=== PATIENT | male | born 1930 | race Caucasian/White ===

== ENCOUNTER → 2017-11-23 | Outpatient (CLI) | payer MEDICARE, OTHER ==
[~2017-11-23] MED LIST: AMOXICILLIN 50500 M1 PO; ANTIVERT25 MG PO; ASPIR 8181 MG PO; ASPIRIN81 M2 PO; B-121000 MC2 PO; CELEBREX 200 M200 M1 PO; CELEXA20 MG PO; COLACE 100 MG100 MG PO; FENOFIBRATE160 MG PO; FLOMAX0.4 MG PO; GLUCOPHAGE XR750 MG PO; HYDROGEN PEROX480 M1 SWISH&SPIT; HYDROXYZINE HCL25 M1 PO; IMDUR 30 MG TAB30 M1 PO; KEFLEX500 MG PO; LASIX 20 MG TAB20 MG PO; LEVEMIR FL100 UNIT/2 SUBQ; LEVOTHYROXIN0.125 M1 PO; LEVOTHYROXINE 0.1 MG PO; LIDOCAINE; LISINOPRIL20 MG PO; MAG-AL PLUS SUS30 ML SWISH&SPIT; METFORMIN HCL500 MG PO; OMEPRAZOLE20 M2 PO; OMEPRAZOLE40 MG PO; PRADAXA110 MG PO; PRADAXA150 MG PO; PROSCAR 5MG TABL5 MG PO; SIMVASTATIN40 MG PO; TOPROL XL25 MG PO; TRAMADOL 50 MG50 MG PO; TRAZODONE PO; TRICOR145 MG PO; ZOCOR20 MG PO
== END ==
LOC: M.WC 01:52
DX: E11.621 Type 2 diabetes mellitus with foot ulcer (principal); L97.421 Non-pressure chronic ulcer of left heel and midfoot limited to breakdown of skin; L97.411 Non-pressure chronic ulcer of right heel and midfoot limited to breakdown of skin; L97.521 Non-pressure chronic ulcer of other part of left foot limited to breakdown of skin; L89.622 Pressure ulcer of left heel, stage 2; L89.612 Pressure ulcer of right heel, stage 2; E11.40 Type 2 diabetes mellitus with diabetic neuropathy, unspecified; E11.51 Type 2 diabetes mellitus with diabetic peripheral angiopathy without gangrene; I10 Essential (primary) hypertension; I48.91 Unspecified atrial fibrillation; K21.9 Gastro-esophageal reflux disease without esophagitis; F03.90 Unspecified dementia, unspecified severity, without behavioral disturbance, psychotic disturbance, mood disturbance, and anxiety; Z95.0 Presence of cardiac pacemaker

== ENCOUNTER → 2017-12-07 | Outpatient (CLI) | payer MEDICARE, OTHER | LOC: M.WC 01:25 | DX: E11.621 Type 2 diabetes mellitus with foot ulcer (principal); L97.521 Non-pressure chronic ulcer of other part of left foot limited to breakdown of skin; L97.421 Non-pressure chronic ulcer of left heel and midfoot limited to breakdown of skin; L97.411 Non-pressure chronic ulcer of right heel and midfoot limited to breakdown of skin; L89.622 Pressure ulcer of left heel, stage 2; L89.612 Pressure ulcer of right heel, stage 2; E11.40 Type 2 diabetes mellitus with diabetic neuropathy, unspecified; L03.129 Acute lymphangitis of unspecified part of limb; E11.51 Type 2 diabetes mellitus with diabetic peripheral angiopathy without gangrene; I48.91 Unspecified atrial fibrillation; F03.90 Unspecified dementia, unspecified severity, without behavioral disturbance, psychotic disturbance, mood disturbance, and anxiety; I11.0 Hypertensive heart disease with heart failure; I50.9 Heart failure, unspecified; K21.9 Gastro-esophageal reflux disease without esophagitis; Z95.0 Presence of cardiac pacemaker ==

== ENCOUNTER → 2017-12-14 | Outpatient (CLI) | payer MEDICARE, OTHER | LOC: M.WC 01:20 | DX: E11.621 Type 2 diabetes mellitus with foot ulcer (principal); L97.421 Non-pressure chronic ulcer of left heel and midfoot limited to breakdown of skin; L89.622 Pressure ulcer of left heel, stage 2; L97.411 Non-pressure chronic ulcer of right heel and midfoot limited to breakdown of skin; L89.612 Pressure ulcer of right heel, stage 2; E11.40 Type 2 diabetes mellitus with diabetic neuropathy, unspecified; E11.51 Type 2 diabetes mellitus with diabetic peripheral angiopathy without gangrene; E11.22 Type 2 diabetes mellitus with diabetic chronic kidney disease; I13.0 Hypertensive heart and chronic kidney disease with heart failure and stage 1 through stage 4 chronic kidney disease, or unspecified chronic kidney disease; N18.3 Chronic kidney disease, stage 3 (moderate); I50.89 Other heart failure; I48.91 Unspecified atrial fibrillation; K21.9 Gastro-esophageal reflux disease without esophagitis; F03.90 Unspecified dementia, unspecified severity, without behavioral disturbance, psychotic disturbance, mood disturbance, and anxiety; Z95.0 Presence of cardiac pacemaker ==